=== PATIENT | male | born 1970 ===

== ENCOUNTER 2020-09-05 16:39 | Outpatient (CLI) | payer MEDICAID ==
[2020-09-05 17:19] VITALS: BP 142/84
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
== END 2020-09-05 16:40 | disposition home or self-care (01) ==
LOC: SC 16:39
PROVIDERS: ATTEND Nurse Practitioner Family
DX: R06.81 Apnea, not elsewhere classified (principal); R06.83 Snoring; R09.89 Other specified symptoms and signs involving the circulatory and respiratory systems; E66.9 Obesity, unspecified; Z68.38 Body mass index [BMI] 38.0-38.9, adult
CPT/HCPCS: 99203; 99212

== ENCOUNTER 2020-11-11 13:54 | Outpatient (CLI) | payer MEDICAID | END 2020-11-11 13:55 | disposition home or self-care (01) | LOC: SC 13:54 | PROVIDERS: ATTEND Nurse Practitioner Family | DX: R53.83 Other fatigue (principal); R06.81 Apnea, not elsewhere classified; R06.83 Snoring | CPT/HCPCS: 95806 ==

== ENCOUNTER 2020-11-19 15:26 | Outpatient (CLI) | payer MEDICAID ==
--- NOTE | 2020-11-19 15:57 | SLEEP CARE CONSULTATION ---
Information from patient questionnaire entered by Jennifer De Leon. I have reviewed and concur with the information entered by Jennifer De Leon. This document represents the service I personally performed and the decisions made by , Myriam Glass ARNP. History of Present Illness Service Date and Time: 11/19/2020 1526 Initial Dawson Sleepiness Scale score: 7 (in 2020) Current Dawson Sleepiness Scale score: 8 Additional HPI information: SALENA HOLT returns for follow up and results of the recently performed home sleep study. The patient was informed of the following findings: the HST was poor test quality due to loss of airflow and pulse oximetry signal which limits reliability of results. Recommendation was for an in lab evaluation or PSG. Sleep Study - Results Type of Sleep Study: Home sleep study Prior sleep studies: No Polysomnography/Home Sleep Study results: Physician Impression: The quality of the study is poor due to significant loss of airflow and pulse oximetry signal.. The length of the study is adequate (> 240 minutes). Please also see the tabulated and graphic data. 1. No significant sleep disordered breathing with an AHI of 1.5/hr and javier SaO2 of 85%. During the study, the patient had 1 apneas (1 obstructive, 0 central, 0 mixed) and 4 hypopneas. The longest episode lasted 41.0 seconds. The patient did not sleep supine during this study. 2. Hypoxemia (ICD-10 R09.02), minimal, with the lowest oxygen saturation of 85 % and 0.5 minutes with SaO2 under 90%. Baseline oxygen saturation was normal (Average oxygen saturation was 94%). Recommendation: Due to the poor quality of the test, the results cannot be reliably interpreted. This home sleep apnea test (HSAT) should be repeated on an in-laboratory polysomnography performed. Allergies and Home Medications Home medication list reviewed: Yes (no new meds) Review of Systems Review of systems same as previous: Yes (no changes) Physical Exam Heart Rate: 77 O2 Saturation: 98 Height: 5 ft 11 in Weight: 283 lb Body Mass Index: 39.4 BMI Classification: Obese Impression and Plan 1. Suspected Obstructive Sleep Apnea-Hypopnea Syndrome, as suggested by a history of loud and irregular snoring, observed cessation of breath while asleep, gasping or choking in sleep and unrefreshed sleep. Patient completed an HST but it was non-diagnostic due to the poor test quality of the study. It was recommended by interpreting physician to repeat study in lab for better accuracy. I advised the patient that we should proceed to polysomnography to confirm the diagnosis and to assess severity. Patient declined to repeat the sleep study until he followed up with his PCP. He states he does not think he could sleep in the sleep lab with all those leads being placed on him. He had difficulty with the HST because he could not breathe through his nose with the nasal sensor in place and the pulse oximeter caused his fingers to go numb. He did not sleep well with having to adjust the sensor and pulse ox repeatedly. He will call with decision on whether he will repeat study after he talks with his PCP. * Patient to follow up with PCP before any rescheduling of test * Patient will call if he decides to repeat the test * Follow up will depend upon patient decision Visit Type: In Office Time Spent with Patient (minutes): 19 Provider Statement: I spent 100% of the Face to Face Visit with the patient with greater than 50% spent counseling the patient and coordination of care.
== END 2020-11-19 15:27 | disposition home or self-care (01) ==
LOC: SC 15:26
PROVIDERS: ATTEND Nurse Practitioner Family
DX: G47.8 Other sleep disorders (principal); R06.81 Apnea, not elsewhere classified; R06.83 Snoring; E66.9 Obesity, unspecified; Z68.39 Body mass index [BMI] 39.0-39.9, adult
CPT/HCPCS: 99212